=== PATIENT | male | born 1935 | race Caucasian/White ===

== ENCOUNTER 2025-01-16 21:46 | Emergency (ER) | payer MEDICARE, SELFPAY ==
[2025-01-16 21:47] VITALS: BMI 29.0
[2025-01-16 21:55] VITALS: BP 174/94
[2025-01-16 22:00] VITALS: BP 144/75
--- NOTE | 2025-01-16 22:13 | ED.GENMED ---
History of Present Illness
General
Chief Complaint: Chest Pain
Source: patient
Exam Limitations: none
Time Seen by Provider: 01/16/25 22:05
History of Present Illness
History of Present Illness:
89-year-old male complaining of episodes of heart racing irregular nature. Occurred after dinner. Lasted about 30 minutes. No chest pain or shortness of breath. Had some lightheadedness. Has been having ongoing tachycardic issues for years. Is
followed by EP at [facility]. Currently has a Holter monitor on. Is on metoprolol 50 mg a day. Currently asymptomatic.
Past History
Past History
ED Past Medical History: Cancer (Prostate cancer), HTN and Hypothyroidism
ED Past Surgical History: Other
Social History
Tobacco: Former smoker
Alcohol: None
Drug: None
Personal:
Living: with family
Employment: Retired
Family History
Family History: Other
Review of Systems
Review of Systems
All Other Systems: Not applicable
Cardiac: Denies chest pain or diaphoresis
ABD/GI: Reports no symptoms
Phy Exam
Physical Exam
Physical Exam:
GENERAL: Alert and oriented in no apparent distress
EYE: Orbits normal.
NECK: Supple, no significant adenopathy.
ENT: Pharynx without erythema
CARDIAC: Regular rate and rhythm with midsystolic murmur
LUNGS: Clear breath sounds,normal
ABDOMEN: Soft, without focal tenderness or distention
NEUROLOGICAL: Alert and oriented , grossly non-focal
SKIN: Warm and dry, no rash or lesion, no discoloration, skin intact.
MUSCULOSKELETAL: No edema,no deformity.Good color
PSYCH: Normal and appropriate interaction.
Scores
Heart Score for Chest Pain Patients
STEMI patient?: Not applicable
Course
Orders/Labs/Results
Orders:
Orders
01/16/25 21:48
EKG [Electrocardiogram (*1)] Urgent
Reason for Study: Chest Pain
EKG- Treatment ONCE
01/16/25 22:24
EKG [Electrocardiogram (*1)] Urgent
Reason for Study: Tachycardia
EKG- Treatment ONCE
01/16/25 22:35
Cardiac Monitoring- Treatment ONCE
IV Insert/Care/Rem.- Treatment PRN
01/16/25 22:40
Basic Metabolic Panel Urgent
Complete Blood Count/With Diff Urgent
TSH Reflex To Free T4 Urgent
Troponin I Urgent
01/16/25 23:47
Metoprolol [Lopressor] 25 mg PO NOW STA
Abnormal Lab Results
01/16/25
22:40
RBC 4.02 L 10^6/uL
(4.70-6.10)
Hgb 12.7 L g/dL
(13.0-18.0)
Hct 35.8 L %
(39.0-52.0)
MCH 31.6 H pg
(27.0-31.0)
Abs Immat Gran (auto) 0.1 H 10^3/uL
(0-0.05)
Absolute Monos (auto) 0.7 H 10^3/uL
(0.1-0.6)
Immature Gran % 1.2 H %
(0-0.5)
Monocytes % 9.8 H %
(1.7-9.3)
BUN 22 H mg/dl
(9-20)
Glucose 116 H mg/dl
(70-99)
01/16/25 22:40
01/16/25 22:40
Vital Signs
Initial and Last Documented VS:
Initial Vital Signs
Temp Pulse Resp BP Pulse Ox
98.2 F 89 18 174/94 98
01/16/25 21:55 01/16/25 21:55 01/16/25 21:55 01/16/25 21:55 01/16/25 21:55
Last Documented Vital Signs
Temp Pulse Resp BP Pulse Ox
98.2 F 84 21 134/85 97
01/16/25 21:55 01/16/25 23:52 01/16/25 23:30 01/16/25 23:52 01/16/25 23:30
MDM/Problems Addressed
Differential Diagnosis Includes:
Patient describing arrhythmia issues. Not describing anginal or ischemic issues. Also not syncopal during the episode. Sounds like he has a history of SVT or atrial tachycardia. Len's episode had the sound more like a PAF episode. While I
was in the room he had an episode of what appeared to be an atrial tach in the 130s. Clearly narrow complex. He appeared relatively asymptomatic during this. Will continue monitoring. Check labs electrolytes thyroid. Will try to contact his
tunnel mucker for follow-up
*Pulse Oximetry
Patient hypoxic: no
*EKG
Interpreted by ED Provider?: Yes
Interpretation: normal
Comparison EKG: no changes
Heart Rate: 72
Rate: normal
Rhythm: sinus
[place]: normal axis
Interval: normal interval
QRS Pattern: normal QRS
Ischemia: no ischemia
*Critical Care Note
Total Time (30-74mins, 75-104mins- exclusive of procedures): Not Applicable
Data Reviewed
Review of Other/Old Records Reveals: Labs and Testing
Update Note
Update Note:
Patient is remained stable and nontoxic. We did call his tunnel mucker but no callback. Do not feel patient warrants medical admission at this time. He did have a few brief runs of SVT or atrial tachycardia. I elected to give him an extra dose of
metoprolol.
ED Attending Note
-
Portions of this chart may have been created with voice recognition software.� Occasional wrong word or��sound alike� substitutions may have occurred due to the inherent limitations of voice recognition software.
Discharge Plan
Departure
Patient Disposition: Home (Routine Discharge)
Date of Disposition: 01/17/25
Time of Disposition: 00:13
Patient with high blood pressure during this ER visit?: Yes
Discharge Problem:
Paroxysmal atrial tachycardia
Instructions: Tachycardia, Palpitations ED, BLOOD PRESSURE
Prescriptions:
No Action
Paxlovid 300 mg (150 mg x 2)-100 mg tablets,dose pack
See Rx Instructions .ROUTE .COMPLEX Qty: 30 0RF
Rx Instructions:
take TWO 150 mg tablets of nirmatrelvir with ONE 100 mg tablet of ritonavir twice daily for 5 days
Referrals:
Mora Mann MD [Family Provider] -
Osbaldo Hearn MD [Active] -
Activity Restrictions/Additional Instructions:
Call your tunnel mucker first thing in the morning
You could start taking an extra 25 mg of metoprolol daily.
I also gave you the name of a local family law legal assistant
Interventions
Interventions:
*Risk Screen - Suicide Last Done: 01/16/25 21:55
*General Assessment Last Done: 01/16/25 22:12
*Neglect/Abuse Screening Last Done: 01/16/25 21:57
*ED- Fall Risk Assessment Last Done: 01/16/25 22:12
*ED COVID-19 Vaccine History Last Done: 01/16/25 22:12
ED- Cardiac Assessment Last Done: 01/16/25 22:14
Discharge Date and Time
Print Language: DANISH
[2025-01-16 22:48] LABS: % Basophils 0.3 % (0-2); % Immature Granulocytes 1.2 % (0-0.5); % Lymphocytes 23.6 % (20.5-51.1); % Monocytes 9.8 % (1.7-9.3); % Neutrophils 64.1 % (42.2-75.2); Absolute Eosinophils 0.1 10^3/uL (0-0.7); Absolute Immature Granulocytes 0.1 10^3/uL (0-0.05); Absolute Lymphocytes 1.6 10^3/uL (1.2-3.4); Absolute Monocytes 0.7 10^3/uL (0.1-0.6); Absolute Neutrophils 4.3 10^3/uL (1.4-6.5); Hematocrit 35.8 % (39.0-52.0); Hemoglobin 12.7 g/dL (13.0-18.0); Mean Corp Hgb Conc. 35.5 g/dL (33.0-37.0); Mean Corpuscular Hgb 31.6 pg (27.0-31.0); Mean Corpuscular Volume 89.1 fL (80.0-94.0); Mean Platelet Volume 8.9 fL (7.4-10.4); Nucleated Red Blood Cells % 0 % (-); Platelet Count 179 10^3/uL (130-400); Red Blood Cell Count 4.02 10^6/uL (4.70-6.10); Red Cell Dist. Width 12.8 % (11.5-14.5); White Blood Cell Count 6.7 10^3/uL (4.8-10.8)
[2025-01-16 23:01] LABS: Blood Urea Nitrogen 22 mg/dl (9-20); Carbon Dioxide 28 mmol/L (22-30); Chloride 107 mmol/L (98-107); Estimated Creatinine Clearance 52 ml/min; Glucose 116 mg/dl (70-99); Potassium 3.7 mmol/L (3.5-5.1); Sodium 142 mmol/L (135-145); eGFR > 60.00
[2025-01-16 23:02] VITALS: BP 134/85
[2025-01-16 23:11] LABS: Troponin I 0.016 ng/ml
[2025-01-16 23:31] LABS: TSH Reflex To Free T4 1.69 uIU/ml (0.47-4.68)
[2025-01-16] MEDS: LOPRESSOR 25 MG PO (23:52)
[2025-01-17] VITALS: BP 145/85
== END 2025-01-17 00:45 | disposition home or self-care (01) ==
LOC: EMR 21:46
PROVIDERS: EMERGENCY PHYSICIAN Emergency Medicine; FAMILY PHYSICIAN Internal Medicine
DX: I47.19 Other supraventricular tachycardia (principal); I10 Essential (primary) hypertension; Z87.891 Personal history of nicotine dependence
CPT/HCPCS: 99284; 80048; 84443; 84484; 85025; 93005

== ENCOUNTER 2025-04-24 08:42 | Emergency (ER) | payer MEDICARE, SELFPAY ==
[2025-04-24 08:44] VITALS: BP 125/98
[2025-04-24 09:14] LABS: Hematocrit 34.2 % (39.0-52.0); Hemoglobin 12.1 g/dL (13.0-18.0); Mean Corp Hgb Conc. 35.4 g/dL (33.0-37.0); Mean Corpuscular Volume 89.3 fL (80.0-94.0); Nucleated Red Blood Cells % 0 % (-); Platelet Count 164 10^3/uL (130-400); Red Cell Dist. Width 12.7 % (11.5-14.5)
[2025-04-24 09:15] LABS: C-Reactive Protein < 5.00 mg/L (0.0-10.00)
[2025-04-24 09:29] LABS: ALT (SGPT) 23 U/L (0-50); AST (SGOT) 37 U/L (17-59); Albumin 4.6 g/dl (3.5-5.0); Alkaline Phosphatase 63 U/L (38-126); Blood Urea Nitrogen 19 mg/dl (9-20); Calcium 9.2 mg/dl (8.4-10.2); Carbon Dioxide 26 mmol/L (22-30); Chloride 105 mmol/L (98-107); Glucose 170 mg/dl (70-99); Potassium 4.4 mmol/L (3.5-5.1); Sodium 140 mmol/L (135-145); Total Protein 7.5 g/dl (6.3-8.2); eGFR > 60.00
--- NOTE | 2025-04-24 11:51 | ED.GENMED ---
History of Present Illness
General
Chief Complaint: Musculo-Skeletal Complaint
Time Seen by Provider: 04/24/25 11:09
History of Present Illness
History of Present Illness:
89-year-old male with history of tachycardia presenting to the emergency department for knee pain. Patient reports history of meniscal injury in the left knee, surgery about 16 years ago. Over the past 2 days has had increasing pain to the left
knee, as well as the right knee, however left greater than right. Denies any preceding injury or trauma. Denies numbness or tingling to his legs, however does note chronic neuropathy without changes. Denies fever. Does feel that there is some
increased swelling. He has tried some Tylenol and pain patches without significant relief. Denies chest pain or difficulty breathing. Denies additional medical complaints
Past History
Past History
ED Past Medical History: Cancer (Prostate cancer), HTN and Hypothyroidism
ED Past Surgical History: Other
Social History
Tobacco: Former smoker
Alcohol: None
Drug: None
Personal:
Living: with family
Employment: Retired
Family History
Family History: Other
Phy Exam
Physical Exam
Physical Exam:
General: Well-appearing, no clinical signs of dehydration, nontoxic and in no acute distress
HEENT: protecting airway
Neck: appears supple
CV: Normal heart rate, regular rhythm
Resp: No accessory muscle use, no increased work of breathing, lungs clear to auscultation bilaterally
Abd: No distention
Extremities: Mild suprapatellar effusion. Range of motion to the left knee limited secondary to pain. Distal sensation and pulses intact. No erythema or warmth. No significant tenderness on palpation of the right knee with range of motion and
Neuro: alert, no focal neurologic deficit
: deferred
Rectal: deferred
Psych: Normal affect
Skin: Intact
Course
Orders/Labs/Results
Orders:
Orders
04/24/25 08:51
CBC/With Diff [Complete Blood Count/With Diff] Urgent
CRP [C-Reactive Protein] Urgent
Comprehensive Metabolic Panel Urgent
ESR [Erythrocyte Sed Rate] Urgent
04/24/25 11:42
Ketorolac [Toradol] 15 mg IM NOW STA
Knee, Left 4 or More Views [CR Knee - Left 4 Or More View*] Urgent
Comment:
Reason For Exam: pain, suprapatellar swelling
US Legs, Left [US Periph Venous LOWER Ext LT] Urgent
Comment:
Reason For Exam: popliteal pain
Abnormal Lab Results
04/24/25
08:51
RBC 3.83 L 10^6/uL
(4.70-6.10)
Hgb 12.1 L g/dL
(13.0-18.0)
Hct 34.2 L %
(39.0-52.0)
MCH 31.6 H pg
(27.0-31.0)
Abs Immat Gran (auto) 0.1 H 10^3/uL
(0-0.05)
Absolute Monos (auto) 0.7 H 10^3/uL
(0.1-0.6)
Immature Gran % 0.7 H %
(0-0.5)
Lymphocytes % 20.3 L %
(20.5-51.1)
ESR 35 H mm/hour
(0-20)
Glucose 170 H mg/dl
(70-99)
04/24/25 08:51
04/24/25 08:51
Vital Signs
Initial and Last Documented VS:
Initial Vital Signs
Temp Pulse Resp BP Pulse Ox
98.1 F 78 16 125/98 98
04/24/25 08:44 04/24/25 08:44 04/24/25 08:44 04/24/25 08:44 04/24/25 08:44
Last Documented Vital Signs
Temp Pulse Resp BP Pulse Ox
98.1 F 66 16 134/72 97
04/24/25 08:44 04/24/25 11:53 04/24/25 11:53 04/24/25 13:00 04/24/25 13:15
MDM/Problems Addressed
MDM/Problems Addressed:
89-year-old male presenting for increased pain to the left knee. Vital signs on arrival are normal.
On exam, patient without any significant findings. Mild suprapatellar swelling to the left knee in comparison to the right knee. Range of motion is limited secondary to pain. No neurovascular compromise. No infectious findings. Ultimately
suspect arthritic and degenerative changes as etiology of pain. Possible repeat meniscal tear. Labs obtained prior to my assessment, unremarkable, normal inflammatory marker. Will obtain x-ray imaging and DVT ultrasound. Toradol administered for
pain.
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 Ultrasound without evidence of DVT. Ultimately feel stable for discharge, however with close interval follow-up with orthopedics, will likely need outpatient MRI imaging for
further evaluation. Will start patient on short course of steroids for pain control, advised continued use of NSAIDs. Return precautions discussed and patient verbalized understanding
*Pulse Oximetry
SaO2: 98
Oxygen Mode of Delivery: Room air
Patient hypoxic: no
*Critical Care Note
Total Time (30-74mins, 75-104mins- exclusive of procedures): Not Applicable
ED Attending Note
-
Portions of this chart may have been created with voice recognition software.� Occasional wrong word or��sound alike� substitutions may have occurred due to the inherent limitations of voice recognition software.
Discharge Plan
Departure
Prescriptions:
No Action
Paxlovid 300 mg (150 mg x 2)-100 mg tablets,dose pack
See Rx Instructions .ROUTE .COMPLEX Qty: 30 0RF
Rx Instructions:
take TWO 150 mg tablets of nirmatrelvir with ONE 100 mg tablet of ritonavir twice daily for 5 days
Referrals:
UNKNOWN - PT DOES,NOT KNOW [Family Provider]
Interventions
Interventions:
*Risk Screen - Suicide Last Done: 04/24/25 08:44
*Neglect/Abuse Screening Last Done: 04/24/25 08:44
*ED- Fall Risk Assessment Last Done: 04/24/25 11:58
*ED COVID-19 Vaccine History Last Done: 04/24/25 11:58
ED-Musculoskeletal Assessment Last Done: 04/24/25 11:15
Discharge Date and Time
Print Language: [email or web address]
[2025-04-24] MEDS: TORADOL 15 MG IM (11:52)
[2025-04-24 11:53] VITALS: BP 141/84
[2025-04-24 12:37] VITALS: BP 154/91
[2025-04-24 13:00] VITALS: BP 134/72
== END 2025-04-24 14:26 | disposition home or self-care (01) ==
LOC: EMR 08:42
PROVIDERS: Emergency Medicine; EMERGENCY PHYSICIAN Student in an Organized Health Care Education/Training Program
DX: M17.12 Unilateral primary osteoarthritis, left knee (principal); M70.42 Prepatellar bursitis, left knee; R22.42 Localized swelling, mass and lump, left lower limb; I10 Essential (primary) hypertension; E03.9 Hypothyroidism, unspecified; G62.9 Polyneuropathy, unspecified; Z87.891 Personal history of nicotine dependence
CPT/HCPCS: 99284; 96372; 73564; 80053; 85025; 85652; 86140; 93971